=== PATIENT | male | born 1970 | race Caucasian/White ===

== ENCOUNTER 2018-11-19 11:21 | Emergency (ER) | payer SELFPAY ==
[~2018-11-19] VITALS: Ht 180.3 cm; Wt 99.8 kg
--- NOTE | 2018-11-19 11:37 | NUR ---
Dr. Orozco at the bedside for MSE.
[2018-11-19] MEDS ORDERED: HYDROCODONE/APAP 10-325 MG TABLET PO ONE (11:45)
[2018-11-19] MEDS ORDERED: HYDROCODONE/APAP 10-325 MG TABLET ONE (11:47)
--- NOTE | 2018-11-19 12:12 | NUR ---
Pt left for CT scan with radiologist.
--- NOTE | 2018-11-19 12:23 | NUR ---
Pt returned to the room from CT with radiologist.
--- NOTE | 2018-11-19 13:01 | NUR ---
juanita del castillo completed and pt demonstraited proper use, miko bandage placed to left knee, and soft neck collar placed. pt was then d/c'd home, aci/rx x1/copy of radiology reports given. pt ambulated with crutches w/o diff. took all belongings.
[2018-11-19 13:03] VITALS: BP 148/82
== END 2018-11-19 13:04 | disposition home or self-care (01) ==
LOC: ER 11:21
DX: S06.0X0A Concussion without loss of consciousness, initial encounter (principal); M25.562 Pain in left knee; V03.99XA Pedestrian with other conveyance injured in collision with car, pick-up truck or van, unspecified whether traffic or nontraffic accident, initial encounter; Y93.89 Activity, other specified; Y92.410 Unspecified street and highway as the place of occurrence of the external cause; Y99.8 Other external cause status
CPT/HCPCS: 70450; 73080; A4663